=== PATIENT | male | born 1965 | race Caucasian/White ===

== ENCOUNTER → 2017-03-07 | Outpatient (CLI) | payer BC ==
[~2017-03-07] MED LIST: ATEN50TA PO; CONTRAST GIVEN MC PRN; HYDR-2672 PO; IOHEXOL 240 MG/ML 50ML VIAL. PO ONE; IOHEXOL 300 MG/ML 75 ML VIAL IV ONE
--- NOTE | 2017-03-07 17:43 | RAD ---
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 Technique: After the oral and intravenous administration of contrast, contiguous, 5 mm axial sections were obtained through the chest, abdomen and pelvis. 75 cc of Omnipaque 300 were administered intravenously during this examination. One or more of the following individualized dose reduction techniques were utilized for this study: 1. Automated exposure control. 2. Adjustment of the mA and/or kV according to patient size. 3. Use of iterative reconstruction technique. Findings: No previous imaging studies are available for comparison. A left internal jugular Hynhge-e-Dlci type catheter is seen with its tip extending to the superior vena cava. Atherosclerotic calcification of the thoracic aorta and its branches is noted. The thoracic aorta is tortuous but tapers normally. The heart is normal in size. No hilar, mediastinal or axillary lymphadenopathy is seen. Mild to moderate bullous emphysematous changes are seen involving both lungs particularly the upper lobes. No acute pulmonary infiltrate is seen. No pulmonary mass or nodule is noted. No pneumothorax or pleural effusion is seen. The liver, spleen, pancreas, and adrenal glands are within normal limits. A 3.7 cm rounded low-attenuation lesion is seen involving the midpole of the right kidney. Several rounded low-attenuation lesions are seen scattered throughout the left kidney. These measure 5 mm to 1 cm in size. They likely represent cysts. Moderate atherosclerotic calcification of the abdominal aorta and its branches is seen. The abdominal aorta is ectatic but tapers normally. The gallbladder is slightly contracted. Questionable small gallstones are seen within the dependent portions of the gallbladder. No free fluid or free air is seen within the abdomen. There is no evidence of bowel obstruction. No retroperitoneal lymphadenopathy is seen. Images through the pelvis demonstrate the urinary bladder distended with urine. Calcifications are seen within the pelvis consistent with phleboliths. No free fluid is seen. No pelvic or inguinal lymphadenopathy is seen. Very mild S-shaped curvature of the thoracolumbar spine is noted. Degenerative changes are seen involving the thoracic and throughout the lumbar spine and both hips. Impression: No acute abnormality is seen. There is no CT evidence of metastatic disease involving the chest, abdomen and pelvis.
== END | disposition home or self-care (01) ==
LOC: CT 12:10
PROVIDERS: ATTEND Internal Medicine Hematology & Oncology
DX: C79.51 Secondary malignant neoplasm of bone (principal); C76.0 Malignant neoplasm of head, face and neck
CPT/HCPCS: 71260; 74177; Q9966; Q9967